=== PATIENT | female | born 1945 | race American Indian/Alaskan Native ===

== ENCOUNTER 2018-08-31 11:59 | Day surgery (SDC) | payer MEDICARE ==
[2018-08-30 08:35] VITALS: BMI 31.1
[2018-08-31 12:34] VITALS: O2SAT 100
[2018-08-31] MEDS ORDERED: Propofol 10 mg/ml Inj (20 ML) ONE (14:03)
[2018-08-31] MEDS ORDERED: Midazolam 2 MG/2 ML VIAL ONE (14:03)
[2018-08-31] MEDS ORDERED: Gentamicin 80 mg in 0.9% NS 80 MG/100 ML BAG IVPB SCH (14:15)
[2018-08-31] MEDS ORDERED: Iodixanol 320 MG/ML 200 ML BOTTLE IV ONE (14:16)
[2018-08-31] MEDS ORDERED: Lidocaine 2% Jelly (Uro-Jet) ONE (14:16)
[2018-08-31] MEDS ORDERED: cefTRIAXone 1 gm 1 GM/100 ML BAG IVPB ONE (14:16)
[2018-08-31] MEDS ORDERED: Iohexol 240 (50 ml) ONE (14:17)
[2018-08-31] MEDS ORDERED: Lactated Ringer's 1,000 ML IV ONE (14:36)
[2018-08-31] MEDS ORDERED: HYDROmorphone 0.5 mg/0.5 ml ISec IVP PRN (14:38)
[2018-08-31 16:11] VITALS: BP 125/60; PULSE 68; RESP 18; TEMP 98
--- NOTE | 2018-08-31 23:38 | OP ---
PROCEDURE DATE: 08/31/2018 UROLOGY OPERATIVE NOTE PREOPERATIVE DIAGNOSES: Urolithiasis, hematuria, hydronephrosis, severe flank pain that is now better. POSTOPERATIVE DIAGNOSES: Urolithiasis, hematuria, hydronephrosis, severe flank pain that is now better. PROCEDURE: Exam under anesthesia, cystoscopy, a left retrograde pyelogram, a left ureteroscopy, removal of left double J-stent. FINDINGS: 1. The bladder mucosa within normal limits. 2. No ureteral abnormalities appreciated. 3. Retrograde pyelogram within normal limits, minimal hydronephrosis if any. COMPLICATIONS: There were no complications. INDICATIONS: See history and physical for the details. The patient here now for the above procedure. DESCRIPTION OF PROCEDURE: After obtaining informed consent, the patient was placed on the table. Routine monitors were placed. Time-out was called to confirm the patient and positioning. We introduced the cystoscope via urethra. We identified ureteral stent, we removed it. We put a wire up to the kidney and did retrograde pyelogram. First, we went with the rigid ureteroscope all the way up following the wire as a guide. We kept that as a safety wire. We went adjacent to that wire. Once the patient stented, we were able to go up without any difficulty. Nothing in the distal ureter. Even today on the KUB, there is a question, maybe, if viewed closely that there is a indentation right on the stent. So, even as I was pulling out the stent, I was looking to see if I could see a stone coming out because it really looked like it is just on the stent in the picture. Either way, I do not see anything, but I still think after looking at that film, the first film and the multiple films after which I do not think that was a stone that was just sitting on the stent (meaning, the original stone that was a 3 mm stone that was causing the patient all that pain, I believe, is still there). Today, that is now gone. We will see if it continues. We went all the way up without difficulty, used the camera. The patient tolerated the procedure well without complications. Wires were removed. Retrograde pyelogram performed, within normal limits. The patient tolerated the procedure well without complications. Again, just to further reiterate, while looking at the film more carefully, I believe that the patient has the stone still there, even on today's fluoro imaging. Moses Bardales MD
--- NOTE | 2018-09-01 07:43 | HP ---
UROLOGY ADMISSION REASON FOR ADMISSION: Treatment of kidney stones. HISTORY OF PRESENT ILLNESS: Hopefully, this is the patient's final treatment for now. It is the third of successive treatments. Initially, I met the patient with severe renal colic and we put a stent in for a distal urethral stone at that time, and we [facility] the [facility]. We discussed other options. At that time, we did a shockwave of a kidney stone. Now, she is here today to remove the stent, and even now, she only had a 3 mm stone, but she does not think she ever passed it. She is here for cystoscopy, removal with double J-stent and possible ureteroscopy, laser lithotripsy depending on what we find. PAST MEDICAL AND SURGICAL HISTORY: As listed in chart, unremarkable. SOCIAL HISTORY: She is retired from . REVIEW OF SYSTEMS: Listed above. Noncontributory. Weight loss, chest pain, shortness of breath, none of those. MEDICATIONS: See the chart. ALLERGIES: SEE CHART. PHYSICAL EXAMINATION: GENERAL: A well-nourished female, in no apparent distress. She appears younger than her stated age of 73. VITAL SIGNS: Within normal limits. LUNGS: Clear. ABDOMEN: Overall, soft and nontender. No flank mass appreciated. organ. PELVIC: No pelvic or rectal masses. LABORATORY DATA: See chart. DIAGNOSES: Ureterolithiasis, severe left renal colic, and left ureteral stone. PLAN: As follows: We did an ESWL for left renal stone. Today, she is here for cystoscopy, removal of the left distal urethral stone, and when we are there, we are going to also do ureteroscopy, laser lithotripsy and see if we can find the leftover stone. Further plans to follow depending on what we find clinically. ADDENDUM: Procedure went well. See the separately dictated operative note. We did not end up finding any of the stones. The procedure went without complication. Moses Bardales MD
--- NOTE | 2018-09-01 11:57 | RAD ---
Date of service: 08/31/2018 PROCEDURE: Intraoperative Fluoroscopy. HISTORY: LEFT RENAL COLIC FINDINGS: Fluoroscopic assistance was provided for retrograde and stent placement. Please refer to the operative report from HAL Preciado DR, MD. Total fluoroscopic time (continuous mode) utilized during the procedure 4.9 seconds. Dose report: DLP [id number] (mGy/m2)
--- NOTE | 2018-09-01 16:30 | RAD ---
Date of service: 08/31/2018 HISTORY: LEFT RENAL COLIC COMPARISON: None available. FINDINGS: BOWEL: Normal. No obstruction. No free air. BONES: Normal. OTHER FINDINGS: Position of the double J stent catheter(s): Satisfactory IMPRESSION: Satisfactory position of double-J stent catheter. Otherwise unremarkable study
== END 2018-08-31 17:27 | disposition home or self-care (01) ==
LOC: C.SDS 11:59
PROVIDERS: ATTEND Urology
DX: N13.2 Hydronephrosis with renal and ureteral calculous obstruction (principal); I10 Essential (primary) hypertension
CPT/HCPCS: 52310; 74018; J0696; J1580; J7120